=== PATIENT | male | born 1970 | race Caucasian/White ===

== ENCOUNTER 2022-03-19 07:00 | Outpatient (NON) | payer OTHER, SELFPAY | END 2022-03-19 07:01 | disposition home or self-care (01) | PROVIDERS: PCP Student in an Organized Health Care Education/Training Program; Visit Provider Internal Medicine Gastroenterology | DX: Z12.11 Encounter for screening for malignant neoplasm of colon (principal) | CPT/HCPCS: 88305 ==

== ENCOUNTER 2022-03-19 10:20 | Day surgery (SDC) | payer OTHER, SELFPAY ==
[2022-03-09 07:58] VITALS: BMI 28.0
[2022-03-19 10:38] VITALS: BP 133/94; PULSE 95; RESP 18; TEMP 36.2; O2SAT 99; BMI 26.9
[2022-03-19] MEDS: LACTATED RINGERS 1,000 ML 150 ML IV CONT (11:00)
--- NOTE | 2022-03-19 11:46 | P.HP_ITS ---
History of Present Illness History of Present Illness Consent: Risks, benefits, and alternatives have been discussed and questions answered. Patient agrees to proceed with procedure. Chief complaint: Neoplam Screening Narrative: Brain Doe is a 52 year old male Presents for screening colonoscopy. Patient's current weight appetite and bowel movements are normal. Patient denies abdominal pain. Patient has had no bleeding. Family history is noncontributory. Patient presents today for screening colonoscopy. Review of Systems Review of Systems: Review of systems noncontributory. [facility] Social History Social History Smoking status: Never smoker Alcohol intake: current Substance use: never Substance use type: does not use Living arrangements: with family Spiritual care concerns: No Meds Home Medications and Allergies Home Medications Medication Instructions Recorded Confirmed Type sodium,potassium,mag sulfates 17.5 See Rx Instructions PO .COMPLEX 02/27/22 Rx gram-3.13 gram-1.6 gram oral soln #354 mL (Suprep Bowel Prep Kit) Allergies Allergy/AdvReac Type Severity Reaction Status Date / Time No Known Allergies Allergy Verified 03/19/22 10:46 Vital Signs Vital Signs - 24 hr 03/19/22 10:38 Temperature 97.1 F L Pulse Rate 95 Respiratory Rate 18 Blood Pressure 133/94 H Pulse Oximetry 99 Oxygen Delivery Room Air Exam Narrative: Physical exam reveals patient to be alert. Vital signs stable. HEENT exam is unremarkable. Patient is anicteric. Lungs are clear to auscultation and percussion. Heart is without murmur or extra sounds. Abdomen bowel sounds are present soft nontender with no organomegaly. Digital external rectal exam is normal. Assessment and Plan Assessment and plan (1) Encounter for screening colonoscopy: Code(s): Z12.11 - Encounter for screening for malignant neoplasm of colon Status: Acute Assessment and Plan: Patient presents today for screening colonoscopy. He appears to be at average risk for colon polyps. Further recommendations will be given after endoscopy.
--- NOTE | 2022-03-19 12:34 | WPDANESEPPF ---
Anes - Initial Pre Proc Eval Procedure: Operation Date: 03/19/22 13:30 Proposed Procedures p Screening Colonoscopy - Phi Samuel MD Date/Time: 03/19/22 12:34 Surgeon: Phi Samuel MD Pre Op Diagnosis: Neoplam Screening Patient Data Age: 52 Gender: M Height: 1.75 m Weight: 82.5 kg Last Vital Signs Temp 36.2 C L 03/19/22 10:38 Pulse 95 03/19/22 10:38 Resp 18 03/19/22 10:38 BP 133/94 H 03/19/22 10:38 Pulse Ox 99 03/19/22 10:38 O2 Del Method Room Air 03/19/22 10:38 Allergies Allergy/AdvReac Type Severity Reaction Status Date / Time No Known Allergies Allergy Verified 03/19/22 10:46 Home Medications Medication Instructions Recorded Confirmed Type sodium,potassium,mag sulfates 17.5 See Rx Instructions PO .COMPLEX 02/27/22 Rx gram-3.13 gram-1.6 gram oral soln #354 mL (Suprep Bowel Prep Kit) Patient hx anesthesia problems: none Family hx anesthesia problems: none Results Review: All pre-operative results and documents have been reviewed as part of the pre-operative evaluation. [facility] Past Medical History Medical History (Updated 03/19/22 @ 12:34 by Adiel Camacho MD) Overweight Social History Social History Smoking status: Never smoker Alcohol intake: current Substance use: never Substance use type: does not use Living arrangements: with family Spiritual care concerns: No Anes - Eval Final PreProcedure Day of Procedure 03/19/22 12:34 Patient weight: overweight Heart: regular rate and rhythm Lungs: clear to auscultation Airway: Mallampati scale class II Neurological: alert and oriented Last oral intake: >/= 8 hours ASA classification: II Emergent: no Anesthetic plan: proceed Anesthesia type and monitoring: general GIVS and standard monitoring Results Review: All pre-operative results and documents have been reviewed as part of the pre-operative evaluation. Informed Consent: The patient's anesthetic plan and its attendant risks and benefits were discussed with the patient/family/POA. Questions were solicited and answers provided to the satisfaction of the patient/family/POA.
[2022-03-19 13:09] VITALS: BP 132/86; PULSE 92; RESP 16; O2SAT 97
[2022-03-19 13:19] VITALS: BP 132/94; PULSE 91; RESP 16; O2SAT 95
[2022-03-19 13:29] VITALS: BP 130/92; PULSE 87; RESP 20; O2SAT 97
--- NOTE | 2022-03-19 13:30 | WPDANESPN ---
Anes - Prog Note Post-Op Date/Time: 03/19/22 13:30 Cardiovascular status: normal Respiratory status: normal Airway patency: baseline Mental status: baseline Post-Op hydration status: normal Vital Signs: Last Vital Signs Temp 36.2 C L 03/19/22 10:38 Pulse 91 03/19/22 13:19 Resp 16 03/19/22 13:19 BP 132/94 H 03/19/22 13:19 Pulse Ox 95 03/19/22 13:19 O2 Del Method Room Air 03/19/22 13:19 Pain Score (VAS): 0/10 I/O: Intake & Output 03/18/22 03/19/22 03/19/22 23:59 07:59 15:59 Intake Total 700 Balance 700 Patient Feedback: Patient satisfied with anesthetic care.
== END 2022-03-19 13:43 | disposition home or self-care (01) ==
PROVIDERS: PCP Student in an Organized Health Care Education/Training Program; Visit Provider Internal Medicine Gastroenterology
PROC: 0DJD8ZZ Inspection of Lower Intestinal Tract, Via Natural or Artificial Opening Endoscopic (ICD-10-PCS; CPT 45378; principal; 2022-03-19 13:30)
DX: Z12.11 Encounter for screening for malignant neoplasm of colon (principal)
CPT/HCPCS: 45385

== ENCOUNTER 2023-01-30 17:19 | Emergency (ER) | payer OTHER, SELFPAY ==
[2023-01-30 17:49] VITALS: BP 149/97; PULSE 87; RESP 16; TEMP 37; O2SAT 98
--- NOTE | 2023-01-30 18:17 | ED.URI ---
HPI - URI/Sore Throat General Chief Complaint: Upper Respiratory Infection Stated Complaint: Sinus Time Seen by Provider: 01/30/23 18:00 Source: patient Mode of arrival: ambulatory Limitations: no limitations History of Present Illness HPI Narrative: Saw is a 52-year-old male patient presenting to the clinic today with complaints of sinus congestion, cough, sore throat, and ear pain times 1 week. He reports his tested positive for COVID at the beginning of the month and he thinks he may have had COVID at the same time. Reports his symptoms did improve but over the last week symptoms came back. MD elicited complaint: sore throat and nasal congestion Related Data Allergies Allergy/AdvReac Type Severity Reaction Status Date / Time codeine Allergy Other Verified 01/30/23 17:54 Review of Systems Review of Systems: Pertinent positives per HPI. Patient denies any fever, chills, rash, headache, visual changes, dizziness, cough, shortness of breath, chest pain, palpitations, nausea, vomiting, diarrhea, constipation, abdominal pain, or any urinary issues. [facility] Past Medical History Medical History Overweight Social History Social History Smoking status: Never smoker Alcohol intake: current Substance use: never Substance use type: does not use Living arrangements: with family Spiritual care concerns: No Comments At the time of my signature, I reviewed and agree with the nursing past medical, surgical, social, and family history. There is no relevant family history pertinent to the patient complaint. Exam Narrative: General: Well-developed, well nourished, in no apparent distress Head: Normocephalic, atraumatic Eyes: Pupils equally round and reactive to light bilaterally, EOM intact, sclera and conjunctive clear, no discharge, lids normal Ears: TMs intact and congested, ear canals clear, no drainage, grossly hearing normal. Nose: Nares patent, clear nasal discharge, no inflammation, no sinus tenderness. Mouth: Oral pharynx red without lesions or masses, good dentition, MMM. Postnasal Neck: Supple, trachea midline, no enlargement of anterior or posterior cervical nodes, no thyroid masses or goiter palpable. Cardio: Regular rate and rhythm, s1 and s2 normal, no murmur appreciated. Resp: Clear to auscultation bilaterally, no rhonchi, rales, wheezing or rubs Course Course Emergency Course: Portions of this record may have been created with voice recognition software. Level of Care: Express Care Visit Vital Signs Vital signs: Vital Signs Temperature 37.0 C 01/30/23 17:49 Pulse Rate 87 01/30/23 17:49 Respiratory Rate 16 01/30/23 17:49 Blood Pressure 149/97 H 01/30/23 17:49 Pulse Oximetry 98 01/30/23 17:49 Oxygen Delivery Room Air 01/30/23 17:49 Temperature 37.0 C 01/30/23 17:49 Pulse Rate 87 01/30/23 17:49 Respiratory Rate 16 01/30/23 17:49 Blood Pressure 149/97 H 01/30/23 17:49 Pulse Oximetry 98 01/30/23 17:49 Oxygen Delivery Room Air 01/30/23 17:49 Vital signs reviewed MDM - URI/Sore Throat MDM Narrative Medical decision making narrative: At the time of visit patient is resting comfortably on the exam table. Strep screen was negative in the clinic today. We will send for culture. Supportive measures were discussed with the patient he voiced understanding discharge instructions and agrees to treatment plan. Prescription for prednisone was sent to the pharmacy. Differential Diagnosis Differential diagnosis: Likely upper respiratory infection, otitis media, sinusitis, viral infection, bronchitis, influenza, pharyngitis and other (COVID) Discharge Plan Discharge Clinical Impression: Acute upper respiratory infection, Viral infection, Pharyngitis, Post-nasal drip Patient Disposition: Home, Self-Care Condition: Stable
== END 2023-01-30 18:25 | disposition home or self-care (01) ==
PROVIDERS: Emergency Provider Nurse Practitioner Family; PCP Student in an Organized Health Care Education/Training Program
DX: J06.9 Acute upper respiratory infection, unspecified (principal); B34.9 Viral infection, unspecified; J02.9 Acute pharyngitis, unspecified; R09.82 Postnasal drip
CPT/HCPCS: 87081; 87880; 99213; G0463